=== PATIENT | female | born 1970 | race Caucasian/White ===

== ENCOUNTER 2020-06-05 19:29 | Emergency (ER) | payer MEDICARE ==
[~2020-06-05] VITALS: Ht 157.5 cm; Wt 54.4 kg
[2020-06-05] MEDS ORDERED: ALBUTEROL SULFATE HFA 8GM INHALATION AEROSOL INH PRN (19:45)
[2020-06-05 21:55] VITALS: BP 122/81
[2020-06-05] MEDS ORDERED: PREDNISONE20 MG PO (21:57)
== END 2020-06-05 22:09 | disposition home or self-care (01) ==
LOC: ER 21:09
DX: J44.1 Chronic obstructive pulmonary disease with (acute) exacerbation (principal); R05 Cough; R06.02 Shortness of breath; M06.9 Rheumatoid arthritis, unspecified; F31.9 Bipolar disorder, unspecified; B19.20 Unspecified viral hepatitis C without hepatic coma; F41.9 Anxiety disorder, unspecified; F17.210 Nicotine dependence, cigarettes, uncomplicated
CPT/HCPCS: 71045; 99283

== ENCOUNTER 2020-06-27 01:47 | Emergency (ER) | payer MEDICARE ==
[~2020-06-27] VITALS: Ht 157.5 cm; Wt 54.4 kg
[~2020-06-27 01:47] MED LIST: PREDNISONE20 MG PO
== END 2020-06-27 05:35 | disposition home or self-care (01) ==
LOC: ER 02:03
DX: J44.1 Chronic obstructive pulmonary disease with (acute) exacerbation (principal); F17.200 Nicotine dependence, unspecified, uncomplicated; M06.9 Rheumatoid arthritis, unspecified; Z86.19 Personal history of other infectious and parasitic diseases
CPT/HCPCS: 71045; 99283

== ENCOUNTER 2020-07-25 17:22 | Emergency (ER) | payer SELFPAY ==
[~2020-07-25] VITALS: Ht 157.5 cm; Wt 54.4 kg
== END 2020-07-25 18:57 | disposition left against medical advice (07) ==
LOC: ER 18:02
DX: R69 Illness, unspecified (principal)

== ENCOUNTER 2020-08-31 06:22 | Inpatient (IN) | payer MEDICARE ==
[~2020-08-31] VITALS: Ht 172.7 cm; Wt 71.2 kg
[2020-08-31] MEDS: ALBUTEROL/IPRATROPIUM 3 ML NEB NEB SCH ×4 (01:10→20:00)
[2020-08-31] MEDS ORDERED: ALBUTEROL SULF 0.083% NEB SOLN 3 ML NEB NEB STA (06:23)
[2020-08-31] MEDS ORDERED: METHYLPREDNISOLONE SOD SUCC 125 MG/2ML VIAL IV STA (06:23)
[2020-08-31] MEDS ORDERED: IPRATROPIUM BROMIDE 0.02% 2.5 ML NEB NEB STA (06:23)
[2020-08-31] MEDS ORDERED: ASPIRIN 81 MG CHEW TAB PO ONE (06:30)
[2020-08-31] MEDS ORDERED: METHYLPREDNISOLONE SOD SUCC 125 MG/2ML VIAL ONE (06:35)
[2020-08-31 06:45] LABS: BASOPHILS % 0.6 % (0.0-1.0); EOSINOPHILS # (AUTO) 0.5 (0.0-0.4); EOSINOPHILS % 7.6 % (0.0-6.0); HEMATOCRIT 41.4 % (34.2-44.1); HEMOGLOBIN 13.3 g/dL (12.0-16.0); LYMPHOCYTES # (AUTO) 3.2 (1.0-3.2); LYMPHOCYTES % 47.6 % (18.0-39.1); MEAN CORPUSCULAR HEMOGLOBIN 29.4 pg (28-32); MEAN CORPUSCULAR HGB CONC 32.1 g/dL (31-35); MEAN CORPUSCULAR VOLUME 91.6 fL (81-99); MONOCYTES # (AUTO) 0.7 (0.2-0.8); MONOCYTES % 10.9 % (4.4-11.3); NEUTROPHILS # (AUTO) 2.3 (2.1-6.9); NEUTROPHILS % 33.2 % (38.7-80.0); PLATELET COUNT 271 x10e3/uL (140-360); RED BLOOD COUNT 4.52 x10e6/uL (3.6-5.1); RED CELL DISTRIBUTION WIDTH 12.8 % (11.7-14.4)
[2020-08-31] MEDS ORDERED: MAGNESIUM SULFATE 2GM/50ML 50 ML IV STA (07:03)
[2020-08-31 07:06] LABS: ALANINE AMINOTRANSFERASE 40 IU/L (0-55); ALBUMIN 3.8 g/dL (3.5-5.0); ALKALINE PHOSPHATASE 67 IU/L (40-150); ANION GAP 12.9 mmol/L (8-16); BLOOD UREA NITROGEN 15 mg/dL (7-26); BUN/CREATININE RATIO 20 (6-25); CALCIUM 8.7 mg/dL (8.4-10.2); CARBON DIOXIDE 28 mmol/L (22-29); CHLORIDE 105 mmol/L (98-107); CREATINE KINASE 96 IU/L (29-168); CREATININE, SERUM 0.75 mg/dL (0.57-1.11); EST GLOMERULAR FILTRATION RATE > 60 ML/MIN (60-); GLUCOSE 104 mg/dL (74-118); POTASSIUM 3.9 mmol/L (3.5-5.1); SODIUM 142 mmol/L (136-145)
[2020-08-31 07:23] LABS: ABG HCO3 28 mmol/L (22-26); ABG PCO2 53 mmHg (35-45); ABG PH 7.33 (7.35-7.45); ABG PO2 90 mmHg (80-105)
[2020-08-31 07:24] LABS: ABG TCO2 30
[2020-08-31] MEDS ORDERED: SODIUM CHLORIDE 0.9% 1000ML 1,000 ML IV SCH (07:45)
[2020-08-31 10:00] VITALS: BP 126/85
[2020-08-31] MEDS: SODIUM CHLORIDE 0.9% 1000ML 1,000 ML IV SCH (11:15)
[2020-08-31] MEDS: METHYLPREDNISOLONE SOD SUCC 125 MG/2ML VIAL IV SCH ×2 (14:37→22:58)
[2020-08-31] MEDS ORDERED: PREDNISONE20 MG PO (15:00)
[2020-08-31] MEDS ORDERED: WIXELA 250-501 EACH PO (15:00)
[2020-08-31] MEDS ORDERED: PROAIR HFA INH8.5 GM PO (15:00)
[2020-08-31 15:31] VITALS: BP 100/79
[2020-08-31] MEDS: AZITHROMYCIN 500MG/NS 250 ML 250 ML IV SCH (16:22)
[2020-08-31] MEDS ORDERED: ENOXAPARIN SOD INJ 40 MG/0.4 ML SYR SC SCH (17:00)
[2020-08-31] MEDS ORDERED: QUETIAPINE FUMARATE 25 MG TAB PO PRN (18:45)
[2020-08-31 19:25] VITALS: BP 126/78
[2020-08-31 19:43] VITALS: BP 133/87
[2020-08-31 20:00] VITALS: BP_SYST 133; BP_SYST 94; BP_DIAS 45; BP_DIAS 87
[2020-08-31] MEDS: DEPAKOTE DELAYED-RELEASE TAB 500 MG PO SCH (21:00)
[2020-09-01 00:24] VITALS: BP 126/78
[2020-09-01] MEDS: SODIUM CHLORIDE 0.9% 1000ML 1,000 ML IV SCH ×5 (03:00→11:00)
[2020-09-01] MEDS: ALBUTEROL/IPRATROPIUM 3 ML NEB NEB SCH ×4 (04:00→14:30)
[2020-09-01 05:20] VITALS: BP 131/89
[2020-09-01] MEDS: METHYLPREDNISOLONE SOD SUCC 125 MG/2ML VIAL IV SCH ×2 (06:00→13:04)
[2020-09-01 07:38] VITALS: BP 131/78
[2020-09-01] MEDS ORDERED: CLONAZEPAM 0.5 MG TAB PO PRN (07:45)
[2020-09-01] MEDS: DEPAKOTE DELAYED-RELEASE TAB 500 MG PO SCH ×2 (07:58→15:00)
[2020-09-01 08:54] VITALS: BP 131/78
[2020-09-01 11:18] VITALS: BP 136/83
[2020-09-01] MEDS ORDERED: RISPERIDONE 1 MG TAB PO STA (14:34)
[2020-09-01] MEDS ORDERED: ALBUTEROL SULFATE HFA 8GM INHALATION AEROSOL INH PRN (14:45)
[2020-09-01 14:55] VITALS: BP 130/72
[2020-09-01] MEDS ORDERED: RISPERIDONE 0.5 MG TAB PO ONE (15:00)
[2020-09-01] MEDS: AZITHROMYCIN 500MG/NS 250 ML 250 ML IV SCH (15:15)
[2020-09-01] MEDS ORDERED: SALMETEROL/FLUTICASONE 250/50 INH SCH (19:00)
== END 2020-09-01 16:15 | disposition left against medical advice (07) | DRG 190 ==
LOC: ER 06:39 → ERHOLD 10:17 → MED/SURG2 10:21 → OBSVTOIN 09-01 09:29
PROVIDERS: ADMIT Internal Medicine; ATTEND Internal Medicine
DX: J44.1 Chronic obstructive pulmonary disease with (acute) exacerbation (principal); J96.02 Acute respiratory failure with hypercapnia; J45.901 Unspecified asthma with (acute) exacerbation; F31.63 Bipolar disorder, current episode mixed, severe, without psychotic features; F41.9 Anxiety disorder, unspecified; F17.200 Nicotine dependence, unspecified, uncomplicated; M06.9 Rheumatoid arthritis, unspecified; F19.11 Other psychoactive substance abuse, in remission; Z59.8 Other problems related to housing and economic circumstances; Z86.19 Personal history of other infectious and parasitic diseases; Z20.822 Contact with and (suspected) exposure to COVID-19
CPT/HCPCS: 36415; 36600; 71045; 72100; 80053; 82550; 82553; 82805; 83880; 84484; 85025; 85379; 93005; 94640; 96361; 99284; G0378; J0456; J1650; J2930; J3475; J7030; U0002

== ENCOUNTER 2020-12-18 14:30 | Emergency (ER) | payer MEDICARE ==
[~2020-12-18 14:30] MED LIST changes: +PROAIR HFA INH8.5 GM PO; +WIXELA 250-501 EACH PO
[2020-12-18 16:06] LABS: CLARITY,URINE SL CLOUDY (CLEAR); COLOR,URINE YELLOW (YELLOW); LEUKOCYTE ESTERASE ,URINE TRACE (NEGATIVE); NITRITE,URINE NEGATIVE (NEGATIVE); PROTEIN,URINE DIPSTICK NEGATIVE (NEGATIVE)
[2020-12-18 16:07] LABS: AMPHETAMINES SCREEN,URINE NEGATIVE (NEGATIVE); BENZODIAZEPINES SCREEN,URINE NEGATIVE (NEGATIVE); KETONES,URINE NEGATIVE (NEGATIVE); PHENCYCLIDINE SCREEN,URINE NEGATIVE (NEGATIVE); URINE UROBILINOGEN 0.2 mg/dL (0.2 - 1)
[2020-12-19 13:09] LABS: BACTERIA,URINE MODERATE /HPF; EPITHELIAL CELLS,URINE FEW /LPF; WBC,URINE (MAN) 0-5 /HPF (0-5)
== END 2020-12-18 16:00 | disposition left against medical advice (07) ==
LOC: ER 15:49
DX: R10.9 Unspecified abdominal pain (principal); R11.2 Nausea with vomiting, unspecified; M54.5 Low back pain; F17.210 Nicotine dependence, cigarettes, uncomplicated
CPT/HCPCS: 80307; 81001; 99282

== ENCOUNTER 2021-01-14 00:15 | Emergency (ER) | payer MEDICARE ==
[~2021-01-14] VITALS: Ht 172.7 cm; Wt 71.2 kg
[2021-01-14] MEDS ORDERED: KETOCONAZOLE15 GM TOP (00:27)
[2021-01-14] MEDS ORDERED: PREDNISONE20 MG PO (00:28)
[2021-01-14] MEDS ORDERED: ALBUTEROL SULFATE HFA 8GM INHALATION AEROSOL INH ONE (00:29)
[2021-01-14] MEDS ORDERED: PROVENTIL HFA6.7 GM INH (00:30)
[2021-01-14] MEDS ORDERED: ALBUTEROL SULFATE HFA 8GM INHALATION AEROSOL INH PRN (00:45)
== END 2021-01-14 00:56 | disposition home or self-care (01) ==
LOC: ER 00:25
DX: R06.00 Dyspnea, unspecified (principal); J44.1 Chronic obstructive pulmonary disease with (acute) exacerbation; B19.20 Unspecified viral hepatitis C without hepatic coma; F41.9 Anxiety disorder, unspecified; F31.9 Bipolar disorder, unspecified
CPT/HCPCS: 99283